=== PATIENT | female | born 1945 | race Caucasian/White ===

== ENCOUNTER 2018-03-21 17:28 | Inpatient (IN) | payer OTHER ==
[~2018-03-21] VITALS: Ht 157.5 cm; Wt 63.5 kg
[2018-03-21 17:30] VITALS: BP_SYST 176
[2018-03-21] MEDS ORDERED: NACL 0.9% 1,000 ML IV ONE (17:33)
[2018-03-21] MEDS ORDERED: ONDANSETRON HCL 4 MG/2 ML VIAL IVP ONE (17:45)
[2018-03-21] MEDS ORDERED: MORPHINE 4 MG/ML INJ. SYRINGE IVP ONE (17:45)
[2018-03-21 17:52] LABS: BILIRUBIN,URINE 1+ (NEGATIVE); BLOOD, URINE 2+ (NEGATIVE); CLARITY/URINE CLEAR (CLEAR); COLOR,URINE YELLOW (YELLOW); GLUCOSE,URINE NEGATIVE (NEGATIVE); KETONES,URINE NEGATIVE (NEGATIVE); LEUKOCYTE ESTERASE ,URINE 1+ (NEGATIVE); NITRITE, URINE NEGATIVE (NEGATIVE); PROTEIN URINE 1+ (NEGATIVE)
[2018-03-21 18:00] LABS: BACTERIA,URINE MODERATE /HPF (None Seen)
[2018-03-21 18:34] LABS: BASOPHILS # (AUTO) 0.4 K/uL (0.0-0.2); BASOPHILS % (AUTO) 3.2 % (0.0-2.0); EOSINOPHILS # (AUTO) 0.1 K/uL (0.0-0.4); EOSINOPHILS % (AUTO) 0.5 % (0.0-4.0); HEMATOCRIT 41.5 % (36-48); HEMOGLOBIN 13.9 g/dL (12.0-16.0); LYMPHOCYTES # (AUTO) 1.2 K/uL (1.0-5.5); LYMPHOCYTES % (AUTO) 8.6 % (20.5-51.5); MEAN CORPUSCULAR HEMOGLOBIN 31 pg (27-31); MEAN CORPUSCULAR HGB CONC 33 % (32-36); MEAN CORPUSCULAR VOLUME 94 fL (79.0-98.0); MONOCYTES # (AUTO) 0.8 K/uL (0.0-1.0); NEUTROPHILS # (AUTO) 11.2 K/uL (1.8-7.7); NEUTROPHILS % (AUTO) 81.7 % (40.0-70.0); PLATELET COUNT (AUTO) 276 K/uL (130-430); RED BLOOD CELL COUNT(AUTO) 4.42 MIL/uL (4.2-6.2); RED CELL DISTRIBUTION WIDTH 12.9 % (9.0-15.0); WHITE BLOOD COUNT (AUTO) 13.7 K/uL (4.8-10.8)
[2018-03-21 18:44] LABS: ANION GAP 9 (5-15); CALCIUM 8.8 mg/dL (8.4-11.0); CHLORIDE 102 mmol/L (98-107); CREATININE 0.71 mg/dL (0.55-1.30); GLUCOSE 137 mg/dL (70-99); POTASSIUM 4.7 mmol/L (3.5-5.1); SODIUM SERUM 136 mmol/L (136-145); UREA NITROGEN, BLOOD 12 mg/dL (8-21)
[2018-03-21 18:48] LABS: ALANINE AMINOTRANSFERASE 903 U/L (12-78); AMYLASE 55 U/L (0-100); LIPASE 201 U/L (73-393); TOTAL BILIRUBIN 2.5 mg/dL (0.0-1.0)
[2018-03-21] MEDS ORDERED: MELO15TA13 PO (19:00)
[2018-03-21] MEDS ORDERED: MIRA25TA PO (19:00)
[2018-03-21] MEDS ORDERED: CHOL100035 PO (19:00)
[2018-03-21] MEDS ORDERED: ASA81 PO (19:00)
[2018-03-21] MEDS ORDERED: PRO40 PO (19:00)
[2018-03-21] MEDS ORDERED: METO25TA3 PO (19:00)
[2018-03-21] MEDS ORDERED: LEVO25TA7 PO (19:00)
[2018-03-21] MEDS ORDERED: ACT35 PO (19:00)
[2018-03-21] MEDS ORDERED: LIP10 PO (19:00)
[2018-03-21] MEDS ORDERED: TYC3 PO (19:00)
[2018-03-21] MEDS ORDERED: DULO60CA41 PO (19:00)
[2018-03-21] MEDS ORDERED: TRAM1TAB33 PO (19:00)
[2018-03-21] MEDS ORDERED: DICL50TA9 PO (19:00)
[2018-03-21 19:02] LABS: ASPARTATE AMINOTRANSFERASE 1225 U/L (10-37)
[2018-03-21] MEDS ORDERED: cefTRIAXone 1 GM IVPB PREMIX 50 ML IV ONE (19:30)
[2018-03-21 21:23] VITALS: BP_SYST 146
[2018-03-21] MEDS ORDERED: hydrALAZINE HCL 25 MG TABLET PO PRN (22:45)
[2018-03-21] MEDS ORDERED: LEVOFLOXACIN 500 MG/D5W 100 ML IV ONE (23:29)
[2018-03-21] MEDS: LEVOFLOXACIN 500 MG/D5W 100 ML IV SCH (23:40)
[2018-03-22 00:34] VITALS: BP_SYST 142
[2018-03-22] MEDS: LEVOTHYROXINE SODIUM 0.025 MG TABLET PO SCH (06:21)
[2018-03-22 08:00] VITALS: BP_SYST 138
[2018-03-22] MEDS: DULoxetine HCL 30 MG CAPSULE.DR (CYMBALTA) PO SCH (08:44)
[2018-03-22] MEDS: ASPIRIN 81 MG TAB.CHEW PO SCH (08:44)
[2018-03-22] MEDS: PANTOPRAZOLE SODIUM 40 MG TAB PO SCH (08:44)
[2018-03-22] MEDS: METOPROLOL SUCCINATE 25 MG TAB.SR.24H (TOPROL XL) PO SCH (08:44)
[2018-03-22] MEDS: ACETAMINOPHEN/CODEINE 300 MG-30 MG TABLET PO SCH (08:45)
[2018-03-22] MEDS ORDERED: ATORVASTATIN 10 MG TABLET PO SCH (09:00)
[2018-03-22 15:39] VITALS: BP_SYST 124
[2018-03-22] MEDS: NACL 0.9% 1,000 ML IV SCH (15:41)
[2018-03-22] MEDS ORDERED: ACETAMINOPHEN 325 MG TABLET PO ONE (19:00)
[2018-03-22 20:00] VITALS: BP_SYST 143
[2018-03-22] MEDS: LEVOFLOXACIN 500 MG/D5W 100 ML IV SCH (23:08)
[2018-03-23 01:35] VITALS: BP_SYST 122
[2018-03-23] MEDS: NACL 0.9% 1,000 ML IV SCH ×3 (03:50→22:24)
[2018-03-23] MEDS: LEVOTHYROXINE SODIUM 0.025 MG TABLET PO SCH (06:30)
[2018-03-23 07:16] LABS: INR 1.2 (0.8-1.2); PROTHROMBIN TIME 11.7 SECS (9.5-12.5)
[2018-03-23 07:19] LABS: BASOPHILS % (AUTO) 0.3 % (0.0-2.0); EOSINOPHILS # (AUTO) 0.3 K/uL (0.0-0.4); EOSINOPHILS % (AUTO) 3.4 % (0.0-4.0); HEMATOCRIT 33.8 % (36-48); HEMOGLOBIN 11.7 g/dL (12.0-16.0); LYMPHOCYTES # (AUTO) 1.3 K/uL (1.0-5.5); LYMPHOCYTES % (AUTO) 15.8 % (20.5-51.5); MEAN CORPUSCULAR HEMOGLOBIN 33 pg (27-31); MEAN CORPUSCULAR HGB CONC 35 % (32-36); MEAN CORPUSCULAR VOLUME 95 fL (79.0-98.0); MONOCYTES # (AUTO) 0.7 K/uL (0.0-1.0); MONOCYTES % (AUTO) 8.7 % (1.7-9.3); NEUTROPHILS # (AUTO) 6.1 K/uL (1.8-7.7); NEUTROPHILS % (AUTO) 71.8 % (40.0-70.0); PLATELET COUNT (AUTO) 217 K/uL (130-430); RED BLOOD CELL COUNT(AUTO) 3.56 MIL/uL (4.2-6.2); RED CELL DISTRIBUTION WIDTH 13.1 % (9.0-15.0); WHITE BLOOD COUNT (AUTO) 8.4 K/uL (4.8-10.8)
[2018-03-23 07:21] LABS: ANION GAP 5 (5-15); CALCIUM 7.9 mg/dL (8.4-11.0); CHLORIDE 109 mmol/L (98-107); CREATININE 0.56 mg/dL (0.55-1.30); GLUCOSE 110 mg/dL (70-99); POTASSIUM 3.7 mmol/L (3.5-5.1); SODIUM SERUM 139 mmol/L (136-145); UREA NITROGEN, BLOOD 9 mg/dL (8-21)
[2018-03-23 07:33] LABS: ALANINE AMINOTRANSFERASE 379 U/L (12-78); ALBUMIN 2.9 g/dL (3.4-4.8); BILIRUBIN,DIRECT 0.4 mg/dL (0.0-0.3)
[2018-03-23 07:36] LABS: ASPARTATE AMINOTRANSFERASE 111 U/L (10-37)
[2018-03-23 12:07] LABS: HEPATITIS B SURFACE AG Negative (Negative); HEPATITIS C VIRUS AB <0.1 s/co ratio (0.0-0.9)
[2018-03-23 12:13] VITALS: BP_SYST 141
[2018-03-23 16:10] VITALS: BP_SYST 143
[2018-03-23] MEDS: ASPIRIN 81 MG TAB.CHEW PO SCH (18:49)
[2018-03-23] MEDS: DULoxetine HCL 30 MG CAPSULE.DR (CYMBALTA) PO SCH (18:49)
[2018-03-23] MEDS: PANTOPRAZOLE SODIUM 40 MG TAB PO SCH (18:49)
[2018-03-23] MEDS: METOPROLOL SUCCINATE 25 MG TAB.SR.24H (TOPROL XL) PO SCH (18:50)
[2018-03-23] MEDS: ACETAMINOPHEN/CODEINE 300 MG-30 MG TABLET PO SCH (18:51)
[2018-03-23 20:00] VITALS: BP_SYST 144
[2018-03-23] MEDS: LEVOFLOXACIN 500 MG/D5W 100 ML IV SCH (22:24)
[2018-03-23 23:45] VITALS: BP_SYST 141
[2018-03-24] MEDS: LEVOTHYROXINE SODIUM 0.025 MG TABLET PO SCH (06:00)
[2018-03-24 08:00] VITALS: BP_SYST 165
[2018-03-24] MEDS ORDERED: DIATR MEGLU/DIATRIZ SOD 30 ML SOLUTION PO ONE (08:22)
[2018-03-24] MEDS: PANTOPRAZOLE SODIUM 40 MG TAB PO SCH (08:46)
[2018-03-24] MEDS: METOPROLOL SUCCINATE 25 MG TAB.SR.24H (TOPROL XL) PO SCH (08:46)
[2018-03-24] MEDS: ASPIRIN 81 MG TAB.CHEW PO SCH (08:46)
[2018-03-24] MEDS: ACETAMINOPHEN/CODEINE 300 MG-30 MG TABLET PO SCH (08:46)
[2018-03-24] MEDS: DULoxetine HCL 30 MG CAPSULE.DR (CYMBALTA) PO SCH (08:47)
[2018-03-24 12:00] VITALS: BP_SYST 143
[2018-03-24] MEDS: NACL 0.9% 1,000 ML IV SCH (14:27)
[2018-03-24 15:03] VITALS: BP_SYST 139
[2018-03-24 19:38] VITALS: BP_SYST 139
[2018-03-25 11:42] LABS: HEPATITIS A AB, IgM Negative (Negative)
[2018-03-25 11:43] LABS: HEPATITIS A AB, IgM Negative (Negative); HEPATITIS B CORE AB, IgM Negative (Negative); HEPATITIS B SURFACE AG Negative (Negative)
== END 2018-03-24 20:00 | disposition home or self-care (01) | DRG 690 ==
LOC: SED 17:28 → STU 19:43
PROVIDERS: ADMIT Internal Medicine; ATTEND Internal Medicine
DX: N39.0 Urinary tract infection, site not specified (principal); R65.10 Systemic inflammatory response syndrome (SIRS) of non-infectious origin without acute organ dysfunction; I10 Essential (primary) hypertension; E03.9 Hypothyroidism, unspecified; E78.00 Pure hypercholesterolemia, unspecified; R79.89 Other specified abnormal findings of blood chemistry; R74.0 Nonspecific elevation of levels of transaminase and lactic acid dehydrogenase [LDH]; E78.5 Hyperlipidemia, unspecified; K83.8 Other specified diseases of biliary tract; Z79.899 Other long term (current) drug therapy; Z79.82 Long term (current) use of aspirin; Z82.49 Family history of ischemic heart disease and other diseases of the circulatory system; Z90.49 Acquired absence of other specified parts of digestive tract; Z90.710 Acquired absence of both cervix and uterus; K75.9 Inflammatory liver disease, unspecified; Z88.1 Allergy status to other antibiotic agents
CPT/HCPCS: 36415; 71045; 74181; 76700-TC; 78226; 80053; 80074; 81000-TC; 82150-TC; 82248-TC; 82550-TC; 83605; 83690-TC; 84484; 85025; 85610-TC; 85730-TC; 86709; 86803; 87040-TC; 87086; 87340; 93005; 93306; 96361; 96365; 96375; 99285; A9537; J0696; J1956; J2270; J2405; J7030; Q9964

== ENCOUNTER 2018-05-24 10:18 | Inpatient (IN) | payer OTHER ==
[~2018-05-24] VITALS: Ht 157.5 cm; Wt 65.3 kg
[~2018-05-24 10:18] MED LIST: ACT35 PO; ASA81 PO; CHOL100035 PO; DICL50TA9 PO; DULO60CA41 PO; LEVO25TA7 PO; MELO15TA13 PO; METO25TA3 PO; MIRA25TA PO; PRO40 PO; TRAM1TAB33 PO; TYC3 PO
--- NOTE | 2018-05-24 10:20 | NUR ---
Pt wheeled to bed 7
[2018-05-24 10:24] VITALS: BP_SYST 149
--- NOTE | 2018-05-24 10:26 | NUR ---
Patient arrived by POV with daughter to accompany. Patient arrived ambulatory and sat in wheelchair in waiting area. Patient alert and oriented. C/C of abdominal pain x 1 month, was admitted 1 month ago. She has a GI follow up appointment on 06/01/18. Patient denies, nausea and vomiting. Patient states pain is right upper quadrant, epigastric pain. Fall on Friday on stomach. Pain is 6/10. Will continue to follow up and monitor patient for changes in status.
[2018-05-24] MEDS ORDERED: KETOROLAC TROMETHAMINE 30 MG VIAL IVP ONE (10:30)
[2018-05-24] MEDS ORDERED: NACL 0.9% 1,000 ML IV ONE (10:30)
--- NOTE | 2018-05-24 10:35 | NUR ---
ER at bedside examining patient.
--- NOTE | 2018-05-24 11:15 | NUR ---
Medication was given to pt, tolerated well
[2018-05-24 11:21] LABS: BASOPHILS # (AUTO) 0.1 K/uL (0.0-0.2); BASOPHILS % (AUTO) 0.6 % (0.0-2.0); EOSINOPHILS % (AUTO) 0.2 % (0.0-4.0); HEMATOCRIT 46.8 % (36-48); HEMOGLOBIN 15.2 g/dL (12.0-16.0); LYMPHOCYTES # (AUTO) 0.6 K/uL (1.0-5.5); MEAN CORPUSCULAR HEMOGLOBIN 31 pg (27-31); MEAN CORPUSCULAR HGB CONC 33 % (32-36); MEAN CORPUSCULAR VOLUME 95 fL (79.0-98.0); MONOCYTES # (AUTO) 0.4 K/uL (0.0-1.0); MONOCYTES % (AUTO) 3.6 % (1.7-9.3); NEUTROPHILS # (AUTO) 9.5 K/uL (1.8-7.7); NEUTROPHILS % (AUTO) 89.6 % (40.0-70.0); PLATELET COUNT (AUTO) 317 K/uL (130-430); RED BLOOD CELL COUNT(AUTO) 4.91 MIL/uL (4.2-6.2); RED CELL DISTRIBUTION WIDTH 12.9 % (9.0-15.0); WHITE BLOOD COUNT (AUTO) 10.6 K/uL (4.8-10.8)
[2018-05-24 11:32] LABS: ANION GAP 12 (5-15); CALCIUM 8.8 mg/dL (8.4-11.0); CHLORIDE 98 mmol/L (98-107); CREATININE 0.79 mg/dL (0.55-1.30); GLUCOSE 133 mg/dL (70-99); POTASSIUM 4.1 mmol/L (3.5-5.1); SODIUM SERUM 134 mmol/L (136-145); UREA NITROGEN, BLOOD 12 mg/dL (8-21)
[2018-05-24 11:43] LABS: ALANINE AMINOTRANSFERASE 1766 U/L (12-78); ALBUMIN 4.2 g/dL (3.4-4.8); ASPARTATE AMINOTRANSFERASE 1933 U/L (10-37); TOTAL BILIRUBIN 1.8 mg/dL (0.0-1.0)
[2018-05-24 12:39] LABS: LIPASE 13240 U/L (73-393)
[2018-05-24] MEDS ORDERED: LIP10 PO (12:48)
[2018-05-24] MEDS ORDERED: IRBE150T48 PO (12:48)
[2018-05-24] MEDS ORDERED: ONDANSETRON HCL 4 MG/2 ML VIAL IVP PRN (13:00)
--- NOTE | 2018-05-24 14:14 | NUR ---
CONSULTATION PAGED/CALLED Reason for Consultation: [] PANCREATITIS Person Who was Notified: [] GRECIA Consulting Physician: [] DR Stephania JACKSON Toeing Stockings Specialty: [] GI Ordering Physician: [] DR Landon COLIN
--- NOTE | 2018-05-24 14:40 | NUR ---
aPatient will be admitted to care of Dr. Jacobsen. Admitted to Telemetry unit. Will go to room 132C. Belongings list completed. Summary report printed. Report will be given at bedside.
--- NOTE | 2018-05-24 14:41 | NUR ---
ADMISSION NOTE Received patient from ER via [facility], received report from CHEL COFFEY. Patient admitted with diagnosis of PANCREATITIS. Patient oriented to hospital routine, call light, toileting and safety-patient verbalized understanding.
[2018-05-24 14:50] VITALS: BP_SYST 138
[2018-05-24] MEDS ORDERED: PANTOPRAZOLE SODIUM 40 MG/VIAL (PROTONIX) IVP ONE (15:00)
[2018-05-24] MEDS: NACL 0.9% 1,000 ML IV SCH ×2 (15:24→23:00)
[2018-05-24 16:30] VITALS: BP_SYST 148
--- NOTE | 2018-05-24 16:30 | NUR ---
Resting Patient able to sleep after Protonix was given, no sign of acute discomfort, fall/safety precaution initiated.
[2018-05-24 19:00] VITALS: BP_SYST 142
--- NOTE | 2018-05-24 19:15 | NUR ---
change of shift.pt.new admission.pt.presents gi involvement;pain.language barrier extant;pt.primary language colombian;bahraini;fluent slight degree.family present;bahraini fluent.i inquired if the pt.presents pain;pt/stated yes.i inquired if the pt.presents nausea.pt.stated no.general status stable.respiratory status stable@room air. iv fluids infusing.diet status npo;ice chips ordered.call light/telephone w/in the pt's reach.
[2018-05-24] MEDS: MORPHINE 4 MG/ML INJ. SYRINGE IVP PRN (19:38)
--- NOTE | 2018-05-24 19:40 | NUR ---
pt.had states she was presenting pain.i have administered morphine;4mg ivp.to f/u re;pain medication efficacy per pain mgx protocol.i inquired if the pt. requested ice chips.the pt.stated no.
[2018-05-24 20:00] VITALS: BP_SYST 142
--- NOTE | 2018-05-24 20:00 | NUR ---
pt.assessed.v/s assessed:values w/in normal limits.i inquired if the pt.presents decrease in pain intensity level.pt.stated yes.she is feeling much better.i inquired if the pt.presents symptoms;nausea.pt.stated no.general status stable.respiratory status stable.pt.capable to reposition self.call light/telephone w/in the pt's reach.
--- NOTE | 2018-05-24 21:00 | NUR ---
no 2100p medication.pt.assessed.pt.present quiescent affect;calm,somnolent. i assessed the pain medication efficacy;pt.stated she feels better.
--- NOTE | 2018-05-24 21:30 | NUR ---
pt.assessed.pt.presents quiescent affect;calm,somnolent.
--- NOTE | 2018-05-24 22:00 | NUR ---
pt.assessed.pt.presents quiescent affect;i inquired if the pt,presents pain symptoms.pt.stated no she is fine. general status stable.respiratory status stable.pt.capable to reposition self.call light/telephone w/in the pt's reach.
--- NOTE | 2018-05-24 22:30 | NUR ---
pt.assessed.pt.presents quiescent affect;calm,somnolent.
--- NOTE | 2018-05-24 23:00 | NUR ---
pt.assessed.pt.presents quiescent affect;calm,somnolent.
--- NOTE | 2018-05-24 23:30 | NUR ---
pt.assessed.pt.present quiescent affect;calm,somnolent.
--- NOTE | 2018-05-25 | NUR ---
pt.assessed.v/s assessed;values w/in normal limits.pt.states she is comfortable.iv fluids infusing. general status stable/respiratory status stable.pt.capable to reposition self.call light/telephone w/in the pt's reach.
[2018-05-25] MEDS: NACL 0.9% 1,000 ML IV SCH ×2 (00:25→11:22)
[2018-05-25 00:26] VITALS: BP_SYST 138
--- NOTE | 2018-05-25 00:30 | NUR ---
i have changed the iv fluids bag.iv fluids infusing via peripheral line access;location; rt.forearm.iv access;assessed;patent.
--- NOTE | 2018-05-25 02:00 | NUR ---
pt.assessed.pt.presents quiescent affect;calm,somnolent.general status stable.respiratory status stable.pt.capable to reposition self.call light/telephone w/in t pt's reach.
--- NOTE | 2018-05-25 04:00 | NUR ---
pt.assessed.pt.presents quiescent affect;calm,somnolent.general status stable.respiratory status stable. iv fluids infusing.pt.capable to reposition self.susana light/telephone w/in the pt's reach.
[2018-05-25] MEDS: MORPHINE 4 MG/ML INJ. SYRINGE IVP PRN ×2 (06:33→22:19)
--- NOTE | 2018-05-25 06:45 | NUR ---
pt.assessed.pt.assisted to the restroom;per dtr's.assistance.pt.requested medication;pain.i have administered morphine;4mg ivp. no c/o nausea.i have provided the pt.w/toiletries.i have provided hospital socks.i have applied an iv-access extension.general status stable.respiratory status stable.call light/telephone placed w/in the pt's reach.i have provided cup of ice chips.
[2018-05-25 07:08] LABS: BASOPHILS # (AUTO) 0.1 K/uL (0.0-0.2); BASOPHILS % (AUTO) 0.6 % (0.0-2.0); EOSINOPHILS # (AUTO) 0.1 K/uL (0.0-0.4); EOSINOPHILS % (AUTO) 1.1 % (0.0-4.0); HEMATOCRIT 35.4 % (36-48); HEMOGLOBIN 11.8 g/dL (12.0-16.0); LYMPHOCYTES # (AUTO) 1.3 K/uL (1.0-5.5); LYMPHOCYTES % (AUTO) 14.2 % (20.5-51.5); MEAN CORPUSCULAR HEMOGLOBIN 32 pg (27-31); MEAN CORPUSCULAR HGB CONC 33 % (32-36); MEAN CORPUSCULAR VOLUME 95 fL (79.0-98.0); MONOCYTES # (AUTO) 0.5 K/uL (0.0-1.0); MONOCYTES % (AUTO) 5.9 % (1.7-9.3); NEUTROPHILS # (AUTO) 6.9 K/uL (1.8-7.7); NEUTROPHILS % (AUTO) 78.2 % (40.0-70.0); PLATELET COUNT (AUTO) 254 K/uL (130-430); RED BLOOD CELL COUNT(AUTO) 3.74 MIL/uL (4.2-6.2); RED CELL DISTRIBUTION WIDTH 12.9 % (9.0-15.0); WHITE BLOOD COUNT (AUTO) 8.9 K/uL (4.8-10.8)
--- NOTE | 2018-05-25 07:20 | NUR ---
Opening Note patient resting in bed, awake and alert, family at bedside, patient denies pain at this time, breathing unlabored on room air, educated patient and family on use of call light for assistance, verbalized understanding, call light and bedside table left within reach, will continue to monitor patient
[2018-05-25 07:36] LABS: ANION GAP 10 (5-15); CHLORIDE 110 mmol/L (98-107); CREATININE 0.53 mg/dL (0.55-1.30); GLUCOSE 77 mg/dL (70-99); POTASSIUM 3.4 mmol/L (3.5-5.1); SODIUM SERUM 140 mmol/L (136-145); UREA NITROGEN, BLOOD 14 mg/dL (8-21)
[2018-05-25 07:41] LABS: ALANINE AMINOTRANSFERASE 795 U/L (12-78); ALBUMIN 2.9 g/dL (3.4-4.8); CHOLESTEROL 147 mg/dL (<200); HDL CHOLESTEROL 59 mg/dL (>55); LDL CHOLESTEROL 78 mg/dL (<100); TOTAL BILIRUBIN 1.6 mg/dL (0.0-1.0); TRIGLYCERIDES 55 mg/dL (30-150)
[2018-05-25 07:44] LABS: ASPARTATE AMINOTRANSFERASE 386 U/L (10-37)
[2018-05-25] MEDS: ENOXAPARIN SODIUM 40 MG/0.4 ML SYRINGE SUBCUT SCH (08:09)
[2018-05-25] MEDS: PANTOPRAZOLE SODIUM 40 MG/VIAL (PROTONIX) IVP SCH (08:09)
[2018-05-25 08:14] LABS: LIPASE 4547 U/L (73-393)
--- NOTE | 2018-05-25 08:20 | NUR ---
Medication Administration educated patient and family regarding meds, verbalized understanding, tolerated well by mouth, no complaints of pain at this time, breathing unlabored on room air, no other needs at this time, safety precautions remain in place, family at bedside, bedside table and call light left within reach, will continue to monitor
[2018-05-25 08:22] VITALS: BP_SYST 142
--- NOTE | 2018-05-25 09:44 | NUR ---
Dr. Cristobal Rounds placed order for abd ultrasound, awaiting GI consult, patient denies pain at this time, family at bedside, will continue to monitor
--- NOTE | 2018-05-25 10:10 | NUR ---
Ultrasound at bedside at this time
[2018-05-25 12:07] VITALS: BP_SYST 130
[2018-05-25] MEDS ORDERED: POTASSIUM CHLORIDE 20 MEQ TAB.PRT.SR PO ONE (12:15)
[2018-05-25] MEDS: D5NS 1,000 ML IV SCH ×2 (12:34→22:23)
--- NOTE | 2018-05-25 12:36 | NUR ---
Potassium administered at this time, educated patient and family regarding med, verbalized understanding, MD okayed to give PO, IV fluids infusing at this time, site remains patent, no other needs, family remains at bedside, educated patient on use of call light for assistance, verbalized understanding, safety precautions remain in place, bedside table and call light left within reach, will continue to monitor
--- NOTE | 2018-05-25 13:45 | NUR ---
Dr. Dueñas Rounds at this time, stated patient to receive MRCP today and will place order, stated may progress patient to clear liquids, will await MD orders
--- NOTE | 2018-05-25 15:01 | NUR ---
Called MRI to ask if patient will be receiving MRI MRCP today, will await call back
--- NOTE | 2018-05-25 15:25 | NUR ---
MRI questionnaire signed at this time, daughter at bedside, informed her that called MRI but no response, procedure may be postponed until tomorrow morning, will keep family updated with plan of care
--- NOTE | 2018-05-25 15:52 | NUR ---
Spoke with Radiology asked about MRI MRCP order for patient, stated MRI will be scheduled for tomorrow morning, will inform patient and family
--- NOTE | 2018-05-25 16:10 | NUR ---
Paged Dr. Dueñas to inform him that MRI MRCP will be done tomorrow, awaiting MD call back
[2018-05-25 16:48] VITALS: BP_SYST 128
[2018-05-25] MEDS: ACETAMINOPHEN 325 MG TABLET PO PRN (17:53)
--- NOTE | 2018-05-25 18:59 | NUR ---
Closing Note patient resting in bed, awake and alert, family at bedside, states pain is better at this time, tolerating clear liquids well, denies abdominal pain at this time, safety precautions remain in place, bedside table and call light left within reach, will endorse to material handler 1st shift nurse
[2018-05-25 20:30] VITALS: BP_SYST 147
--- NOTE | 2018-05-25 20:30 | NUR ---
Opening notes Pt AAOx3. VSS, afebrile. Pt states pain is ok at this time 10/21. IV fluids infusing R. forearm, no s/s infiltration noted. Call light within reach. Family at the bedside. Pt NPO after midnight for MRCP in AM. Safety measures in place. Will continue to monitor.
--- NOTE | 2018-05-25 21:30 | NUR ---
Rounds Pt asleep. No s/s distress noted. IV fluids infusing as ordered, no s/s infiltration noted. Family at bedside. Call light within reach. Will continue to monitor.
--- NOTE | 2018-05-25 22:19 | NUR ---
Pain mgmt Pt ambulated to the bathroom with a cane and voided stand by assist. Pt c/o abd pain 01/20, medicated with Morphine 4mg IVP as needed. Educated pt/pt family regarding possible side effect, verbalized understanding. Call light within reach. To monitor.
[2018-05-25 22:54] VITALS: BP_SYST 151
--- NOTE | 2018-05-26 00:03 | NUR ---
Rounds Pt asleep, no s/s distress noted. Call light within reach. Family at bedside. Will continue to monitor.
[2018-05-26 01:11] VITALS: BP_SYST 138
--- NOTE | 2018-05-26 02:38 | NUR ---
Rounds/Bathroom Pt alert, awake. Ambulated to the bathroom with a cane and voided. No c/o pain at this time. Family at bedside. Call light within reach. To monitor.
--- NOTE | 2018-05-26 05:50 | NUR ---
Closing notes Pt awake, pt walked to the bathroom with cane steady gait. No c/o pain at this time. Pt voided. IV fluids infusing as ordered R. forearm 22G no s/s infiltration. Call light within reach. Family at bedside. Safety measures in place. To endorse to am nurse.
--- NOTE | 2018-05-26 07:55 | NUR ---
INITIAL NOTE RECEIVED PT IN BED, NO S/S OF DISTRESS OR SOB NOTED, PT HAS NO C/O PAIN AT THIS TIME, PT IN STABLE CONDITION, PT AAOX4, VERBAL, MALDIVIAN SPEAKING, IV CATHETER PATENT, NO SIGNS OF INFECTION OR INFILTRATION NOTED, RUNNING IV FLUIDS ORDERED. BED AT LOWEST POSITION, CALL LIGHT WITHIN REACH, WILL CONTINUE TO MONITOR PT FOR ANY CHANGES, FALL AND SAFETY PRECAUTIONS IN PLACE. PT NPO FOR PROCEDURE THIS AM.
[2018-05-26 08:30] VITALS: BP_SYST 132
[2018-05-26] MEDS: PANTOPRAZOLE SODIUM 40 MG/VIAL (PROTONIX) IVP SCH (08:49)
[2018-05-26] MEDS: ENOXAPARIN SODIUM 40 MG/0.4 ML SYRINGE SUBCUT SCH (08:49)
[2018-05-26] MEDS: D5NS 1,000 ML IV SCH ×3 (08:50→23:08)
--- NOTE | 2018-05-26 10:12 | NUR ---
ROUNDS PT IN BED, NO S/S OF DISTRESS OR SOB NOTED, PT HAS NO C/O PAIN AT THIS TIME, PT IN STABLE CONDITION, PT RESTING COMFORTABLY, DAUGHTER AT BEDSIDE, WILL CONTINUE TO MONITOR PT FOR ANY CHANGES.
--- NOTE | 2018-05-26 10:47 | NUR ---
Nutrition Update Galindo Scale 16 noted. Pt admitted for pancreatitis. Diet: NPO and clear liquid (2 active, diet orders) BMI: 26.3 kg/m2 RD to follow per nutrition care standards.
[2018-05-26 11:21] LABS: BASOPHILS % (AUTO) 0.4 % (0.0-2.0); EOSINOPHILS # (AUTO) 0.3 K/uL (0.0-0.4); EOSINOPHILS % (AUTO) 5.7 % (0.0-4.0); HEMATOCRIT 37.8 % (36-48); HEMOGLOBIN 12.1 g/dL (12.0-16.0); LYMPHOCYTES # (AUTO) 1.3 K/uL (1.0-5.5); LYMPHOCYTES % (AUTO) 27.2 % (20.5-51.5); MEAN CORPUSCULAR HEMOGLOBIN 30 pg (27-31); MEAN CORPUSCULAR HGB CONC 32 % (32-36); MEAN CORPUSCULAR VOLUME 95 fL (79.0-98.0); MONOCYTES # (AUTO) 0.5 K/uL (0.0-1.0); MONOCYTES % (AUTO) 10.3 % (1.7-9.3); NEUTROPHILS # (AUTO) 2.8 K/uL (1.8-7.7); NEUTROPHILS % (AUTO) 56.4 % (40.0-70.0); PLATELET COUNT (AUTO) 267 K/uL (130-430); RED BLOOD CELL COUNT(AUTO) 3.99 MIL/uL (4.2-6.2); RED CELL DISTRIBUTION WIDTH 13.1 % (9.0-15.0); WHITE BLOOD COUNT (AUTO) 4.9 K/uL (4.8-10.8)
[2018-05-26 11:22] LABS: ANION GAP 8 (5-15); CALCIUM 8.1 mg/dL (8.4-11.0); CHLORIDE 108 mmol/L (98-107); CREATININE 0.53 mg/dL (0.55-1.30); GLUCOSE 159 mg/dL (70-99); POTASSIUM 3.4 mmol/L (3.5-5.1); SODIUM SERUM 140 mmol/L (136-145); UREA NITROGEN, BLOOD 4 mg/dL (8-21)
[2018-05-26 11:26] LABS: ALANINE AMINOTRANSFERASE 459 U/L (12-78); ALBUMIN 2.9 g/dL (3.4-4.8); AMYLASE 96 U/L (0-100); LIPASE 985 U/L (73-393); TOTAL BILIRUBIN 0.6 mg/dL (0.0-1.0)
[2018-05-26 11:28] LABS: ASPARTATE AMINOTRANSFERASE 96 U/L (10-37)
--- NOTE | 2018-05-26 11:31 | NUR ---
BLOOD PRESSURE PATIENT'S BLOOD PRESSURE IS 154/72, 68. PT HAS NO C/O HEADACHE OR DIZZINESS, PT IN STABLE CONDITION. DR CHRISTOPHER LANDON, AWAITING CALL BACK. Addendum: 05/26/18 at 1157 by Eladia Helm RN DR CHRISTOPHER VILLANUEVA Addendum: 05/26/18 at 1220 by Eladia Helm RN called back and mushtaq orders given and carried out
[2018-05-26] MEDS ORDERED: METOPROLOL SUCCINATE 25 MG TAB.SR.24H (TOPROL XL) PO ONE (12:15)
[2018-05-26 12:30] VITALS: BP_SYST 154
--- NOTE | 2018-05-26 12:44 | NUR ---
For MRCP via wheelchair
--- NOTE | 2018-05-26 13:41 | NUR ---
PT BACK FROM ERCP PT IN STABLE CONDITION, NO S/S OF DISTRESS OR SOB NOTED, PT HAS NO C/O PAIN AT THIS TIME.
--- NOTE | 2018-05-26 13:52 | NUR ---
CALL DR COUCH INVESTIGATOR, AWAITING CALL BACK FOR RESULTS OF MRCP. Addendum: 05/26/18 at 1513 by Eladia Helm RN made rounds and aware of results, new orders given and carried out
[2018-05-26 16:35] VITALS: BP_SYST 135
--- NOTE | 2018-05-26 18:25 | NUR ---
CLOSING NOTE PT IN BED, NO S/S OF DISTRESS OR SOB NOTED, PT HAS NO C/O PAIN AT THIS TIME, PT IN STABLE CONDITION, PT AAOX4, VERBAL, JAPANESE SPEAKING, IV CATHETER PATENT, NO SIGNS OF INFECTION OR INFILTRATION NOTED, RUNNING IV FLUIDS ORDERED. BED AT LOWEST POSITION, CALL LIGHT WITHIN REACH, WILL ENDORSE CARE OF PT TO INCOMING NURSE, FALL AND SAFETY PRECAUTIONS IN PLACE.
[2018-05-26 20:09] VITALS: BP_SYST 154
--- NOTE | 2018-05-26 20:09 | NUR ---
Opening note Pt asleep, easily arousable. VSS. No c/o pain at this time. IVF infusing as ordered R forearm 22G no s/s infiltration noted. Call light within reach. Pt's family stays at the bedside. Will continue to monitor. Addendum: 05/27/18 at 0626 by Meme Montalvo RN Refused bed alarm on.
[2018-05-26] MEDS: ACETAMINOPHEN 325 MG TABLET PO PRN (23:10)
--- NOTE | 2018-05-26 23:10 | NUR ---
Rounds/Headache Pt awake c/o headache 09/20. Medicated with Tylenol 2tabs PO as needed. Call light within reach. Family at bedside. To monitor.
[2018-05-27 00:41] VITALS: BP_SYST 136
--- NOTE | 2018-05-27 01:30 | NUR ---
Rounds Pt asleep. No s/s distress or discomfort noted. Call light within reach. Family at bedside. To monitor.
--- NOTE | 2018-05-27 03:20 | NUR ---
Rounds/SB on the monitor Pt asleep, easily arousable. Sinus Travis on the monitor. No s/s distress noted. Daughter at bedside. To monitor.
--- NOTE | 2018-05-27 06:15 | NUR ---
Closing notes/Refused bed alarm Pt asleep. No s/s distress or discomfort noted. No c/o abd pain during the night. IV fluids infusing as ordered R. FA 22G no infiltration noted. Needs met throughout the shift. Pt's daughter at bedside. Refused bed alarm. Encouraged to call nurse for assistance. Call light within reach. To endorse to AM nurse.
--- NOTE | 2018-05-27 07:54 | NUR ---
Dr Dueñas round assessing patient, will put in new order, will follow up with orders
--- NOTE | 2018-05-27 07:55 | NUR ---
AM rounds patient is resting in bed, family is present at the bedside, A&Ox4, assessment complete, IV line patent and intact, allergy band on, patient denies any pain at this time, educated on use of call light and her diet, bed at the lowest position, bed alarm on, call light within reach, two side rails up, bed close to nurse station, fall and aspiration precautions in place.
[2018-05-27 08:23] VITALS: BP_SYST 137
[2018-05-27] MEDS: PANTOPRAZOLE SODIUM 40 MG/VIAL (PROTONIX) IVP SCH (08:55)
--- NOTE | 2018-05-27 08:55 | NUR ---
Medication patient is resting in bed, family is at the bedside, educated on medication use and side effect, patient verbalized understanding and tolerated well, IV line patent and intact, allergy band on, no other needs at this time, bed at the lowest position, bed alarm on, call light within reach, two side rails up, bed close to nurse station, fall and aspiration precautions in place. Addendum: 05/27/18 at 1115 by Sandra Ferro RN IV [id number] IV primary line and D5/NS bad was changed
[2018-05-27] MEDS: ENOXAPARIN SODIUM 40 MG/0.4 ML SYRINGE SUBCUT SCH (08:57)
[2018-05-27] MEDS: METOPROLOL SUCCINATE 25 MG TAB.SR.24H (TOPROL XL) PO SCH (08:58)
[2018-05-27] MEDS: D5NS 1,000 ML IV SCH (08:59)
--- NOTE | 2018-05-27 10:44 | NUR ---
RN rounds patient resting in bed, eyes closed, breathing is even and unlabored, no signs of distress, family is at bedside, continuing to monitor the patient, bed in lowest position, two side rails up, call light within reach, bed close to nursing station, fall and aspiration precautions in place. Addendum: 05/27/18 at 1112 by Sandra Ferro RN MEDICATION [id number]
--- NOTE | 2018-05-27 13:00 | NUR ---
Rounds patient is resting in bed with family at the bedside, took patient off case monitor, IV line patent and intact, patient stated she tolerated diet changed, no other needs at this time, bed at the lowest position, two side rails up, bed alarm on, call light within reach, bed close to nurse station fall and aspiration precautions in place.
[2018-05-27 13:03] VITALS: BP_SYST 163
[2018-05-27 13:14] LABS: HEPATITIS A AB, IgM Negative (Negative); HEPATITIS B CORE AB, IgM Negative (Negative); HEPATITIS B SURFACE AG Negative (Negative)
--- NOTE | 2018-05-27 13:29 | NUR ---
Paged Dr Cristobal regarding high blood pressure
[2018-05-27] MEDS ORDERED: cloNIDine HCL 0.1 MG TABLET PO PRN (14:30)
--- NOTE | 2018-05-27 15:16 | NUR ---
Clonidine PRN patient is resting in bed, educated patient on use and side effect, patient verbalized understanding and tolerated well, no other needs at this time, IV line clean and intact, bed at the lowest position, bed alarm on, call light within reach, two side rails up, bed close to nurse station, fall and aspiration precautions in place.
[2018-05-27 16:44] VITALS: BP_SYST 149
--- NOTE | 2018-05-27 17:30 | NUR ---
Rounds patient is resting in bed, patient stated that she is started to feel dizzy from the clonidine, educated on the importance of call light system and moving positions slowly, IV line clean and intact, bed at the lowest position, bed alarm on, call light within reach, two side rails up, bed close to nurse station, fall and aspiration precautions in place.
--- NOTE | 2018-05-27 19:00 | NUR ---
closing note patient is resting in bed with family at the bedside, all needs met for the shift, patient in stable condition, denies any pain, will endorse report to noc shift nurse, IV line clean and intact, bed at the lowest position, bed alarm on, call light within reach, two side rails up, bed close to nurse station, fall and aspiration precautions in place.
--- NOTE | 2018-05-27 19:10 | NUR ---
OPENING NOTE RECEIVED ENDORSEMENT REPORT FROM DAY SHIFT NURSE AT BEDSIDE. PT IS AOX4, WALLISIAN SPEAKING. DTR'S AT BEDSIDE. PT RESTING COMFORTABLY IN BED WITH EYES OPEN. CHEST RISE EVEN AND UNLABORED. NO SOB NOTED, NO DISTRESS NOTED. PT DENIED PAIN AT THIS TIME. PT'S IV ON R FA 22. PT'S IV CLEAN DRY AND INTACT. IVF INFUSING WELL. PT'S SKIN DRY, INTACT AND CLEAN. PT INSTRUCTED HOW TO USE CALL LIGHT AND ROOM PHONE, PT VERBALIZED UNDERSTANDING. PT ORIENTED TO HOSPITAL ROOM AND EDUCATED ON SAFETY, PT INSTRUCTED TO USE CALL LIGHT TO CALL FOR ASSISTANCE, PT VERBALIZED UNDERSTANDING. SAFETY MEASURES IN PLACE CALL LIGHT/ROOM PHONE WITHIN REACH, BEDSIDE TABLE WITHIN REACH, BED WHEELS LOCKED, BED IN LOWEST POSITION, BED RAILS UP X3 AND BED ALARM ON. WILL CONTINUE TO MONITOR PT AND CONTINUE POC.
[2018-05-27 20:36] VITALS: BP_SYST 140
--- NOTE | 2018-05-27 20:37 | NUR ---
RN ROUNDS PT RESTING COMFORTABLY IN BED WITH EYES OPEN. PT'S FAMILY AT BEDSIDE. CHEST RISE EVEN AND UNLABORED. NO SOB NOTED, NO DISTRESS NOTED. PT DENIED PAIN AT THIS TIME. PT'S IV CLEAN DRY AND INTACT. IVF INFUSING WELL. PT'S SKIN DRY AND CLEAN. VITAL SIGNS WNL. IVF INFUSING WELL. NO OTHER NEEDS AT THIS TIME. SAFETY MEASURES IN PLACE CALL LIGHT/ROOM PHONE WITHIN REACH, BEDSIDE TABLE WITHIN REACH, BED WHEELS LOCKED, BED IN LOWEST POSITION, BED RAILS UP X3 AND BED ALARM ON. WILL CONTINUE TO MONITOR PT AND CONTINUE POC.
--- NOTE | 2018-05-27 22:40 | NUR ---
RN ROUNDS PT RESTING COMFORTABLY IN BED WITH EYES CLOSED. PT'S DTR AT BEDSIDE. CHEST RISE EVEN AND UNLABORED. NO SOB NOTED, NO DISTRESS NOTED. NO NEEDS AT THIS TIME. SAFETY MEASURES IN PLACE CALL LIGHT/ROOM PHONE WITHIN REACH, BEDSIDE TABLE WITHIN REACH, BED WHEELS LOCKED, BED IN LOWEST POSITION, BED RAILS UP X3 AND BED ALARM ON. WILL CONTINUE TO MONITOR PT AND CONTINUE POC.
[2018-05-28 00:12] VITALS: BP_SYST 137
[2018-05-28] MEDS: D5NS 1,000 ML IV SCH ×2 (00:53→10:15)
--- NOTE | 2018-05-28 00:56 | NUR ---
RN ROUNDS PT RESTING COMFORTABLY IN BED WITH EYES CLOSED. PT'S DTR AT BEDSIDE. CHEST RISE EVEN AND UNLABORED. NO SOB NOTED, NO DISTRESS NOTED. PT EASILY AWAKEN. SCHEDULED FLUIDS INFUSING WELL. NO OTHER NEEDS AT THIS TIME. SAFETY MEASURES IN PLACE CALL LIGHT/ROOM PHONE WITHIN REACH, BEDSIDE TABLE WITHIN REACH, BED WHEELS LOCKED, BED IN LOWEST POSITION, BED RAILS UP X3 AND BED ALARM ON. WILL CONTINUE TO MONITOR PT AND CONTINUE POC.
--- NOTE | 2018-05-28 02:23 | NUR ---
RN ROUNDS PT RESTING COMFORTABLY IN BED WITH EYES CLOSED. CHEST RISE EVEN AND UNLABORED. NO SOB NOTED, NO DISTRESS NOTED. SAFETY MEASURES IN PLACE. WILL CONTINUE TO MONITOR PT AND CONTINUE POC.
--- NOTE | 2018-05-28 04:23 | NUR ---
RN ROUNDS PT RESTING COMFORTABLY IN BED WITH EYES CLOSED. DTR AT BEDSIDE. CHEST RISE EVEN AND UNLABORED. NO SOB NOTED, NO DISTRESS NOTED. SAFETY MEASURES IN PLACE CALL LIGHT/ROOM PHONE WITHIN REACH, BEDSIDE TABLE WITHIN REACH, BED WHEELS LOCKED, BED IN LOWEST POSITION, BED RAILS UP X3 AND BED ALARM ON. WILL CONTINUE TO MONITOR PT AND CONTINUE POC.
--- NOTE | 2018-05-28 06:50 | NUR ---
CLOSING NOTE WILL ENDORSE PT REPORT TO DAY SHIFT NURSE AT BEDSIDE. PT CURRENTLY RESTING COMFORTABLY IN BED WITH EYES CLOSED. CHEST RISE EVEN AND UNLABORED. NO SOB NOTED, NO DISTRESS NOTED. DTR AT BEDSIDE. IVF INFUSING WELL. ALL SCHEDULED MEDICATIONS ADMINISTERED ORDERED, PT TOLERATED WELL. ALL NEEDS MET THROUGHOUT SHIFT. NO NEEDS AT THIS TIME. SAFETY MEASURES IN PLACE CALL LIGHT/ROOM PHONE WITHIN REACH, BEDSIDE TABLE WITHIN REACH, BED WHEELS LOCKED, BED IN LOWEST POSITION, BED RAILS UP X3 AND BED ALARM ON. WILL CONTINUE TO MONITOR PT AND CONTINUE POC UNTIL CHANGE OF SHIFT.
--- NOTE | 2018-05-28 07:26 | NUR ---
endorsed pt care
[2018-05-28 08:00] VITALS: BP_SYST 152
--- NOTE | 2018-05-28 08:00 | NUR ---
Note Pt resting in bed with her daughter at bedside. No SOB/resp distress or abdominal pain/discomfort noted at this time. IV in left forearm intact and patent infusing IVF's. No needs noted at this time. Call light within reach.
[2018-05-28] MEDS: PANTOPRAZOLE SODIUM 40 MG/VIAL (PROTONIX) IVP SCH (09:18)
[2018-05-28] MEDS: METOPROLOL SUCCINATE 25 MG TAB.SR.24H (TOPROL XL) PO SCH (09:19)
[2018-05-28] MEDS: ENOXAPARIN SODIUM 40 MG/0.4 ML SYRINGE SUBCUT SCH (09:22)
--- NOTE | 2018-05-28 10:00 | NUR ---
Note Dr Cristobal did rounds and orders written. Pt's daughter aware that her mother will received soft diet for lunch and if pt tolerated diet then pt may go home today. Pt denies any needs at this time. Call light within reach.
[2018-05-28 12:30] VITALS: BP_SYST 148
--- NOTE | 2018-05-28 12:35 | NUR ---
Note Pt sitting up in bed eating her soft diet for lunch. Denies any abdominal pain at this time, pt's daughter assisting pt with her needs all shift. Call light within reach.
--- NOTE | 2018-05-28 14:34 | NUR ---
Note Pt tolerated soft diet for lunch well. Pt's daughter has been at bedside all shift. Call light within reach.
--- NOTE | 2018-05-28 14:54 | NUR ---
05/28/2018 8:03 AM (PT) Sheila Harley: need endoscopic ultra sound o/p will refer to dr camargo [phone] ff up with pcp in 1 week 05/27/2018 3:34 PM (PT) Sheila Harley: dr chisholm, gi mrcp neg liquid diet lipase trending down 985 plan for eus o/p per gi 05/25/2018 8:15 PM (PT) Sheila Harley: 73 f acute abdominal pain and pancreatitis in the setting of recent cholecystectomy in January 2018 and very elevated LFTs. 1. Acute pancreatitis. 2. Elevated LFTs. 3. Concern for retained common bile duct stone. GI CARMEN LOW
--- NOTE | 2018-05-28 15:30 | NUR ---
Note Pt and daughter were given discharge instructions and notified that pt needs to see her primary MD and Coin Machine Collector in one to two weeks. Pt's daughter stated that pt already has appts for the two MS's for next week. Pt's left IV was dc'd - no swelling/bleeding/drainage or redness at site. Pt denies any abdominal pain/discomfort at this time or after eating her soft diet for lunch. No SOB/resp distress noted at this time. Call light within reach.
--- NOTE | 2018-05-28 15:50 | NUR ---
Note Pt off the floor via wheelchair to private car. Pt has her 2 appts with PCP and GI MD next week. Pt denies any abdominal pain/discomfort or SOB/resp distress at this time. Pt stable. No needs noted at this time. Pt off the floor with all belongings packed by her daughter and . Pt's daughter checked side table and drawers for belongings. Pt dressed in street clothes for discharge home.
--- NOTE | 2018-05-29 16:31 | NUR ---
Discharge Follow Up Phone Call BLEACHER LARD phoned patient, . A family member translated for patient. Patient is no longer having pain but still feels tired. She is aware of and will attend her follow up appointments. Her family is assisting her as needed. Patient has no questions or concerns.
== END 2018-05-28 15:50 | disposition home or self-care (01) | DRG 440 ==
LOC: SED 10:18 → STU 12:49 → SMU 05-27 16:11
PROVIDERS: ADMIT Internal Medicine; ATTEND Internal Medicine
DX: K85.90 Acute pancreatitis without necrosis or infection, unspecified (principal); E78.5 Hyperlipidemia, unspecified; I10 Essential (primary) hypertension; Z90.49 Acquired absence of other specified parts of digestive tract; Z88.1 Allergy status to other antibiotic agents; Z88.8 Allergy status to other drugs, medicaments and biological substances; Z79.899 Other long term (current) drug therapy; Z79.82 Long term (current) use of aspirin
CPT/HCPCS: 36415; 74181; 76700-TC; 80053; 80061; 80074; 82150-TC; 83690-TC; 84478-TC; 84484; 85025; 90656; 93005; 96361; 96374; 99285; C9113; J1650; J1885; J2270; J7030; J7042

== ENCOUNTER 2018-10-04 09:51 | Emergency (ER) | payer OTHER ==
[~2018-10-04] VITALS: Ht 154.9 cm; Wt 63.5 kg
[~2018-10-04 09:51] MED LIST changes: -DICL50TA9 PO; +IRBE150T48 PO; +LIP10 PO; -MELO15TA13 PO; -MIRA25TA PO; -PRO40 PO; -TRAM1TAB33 PO; -TYC3 PO
[2018-10-04 09:58] VITALS: BP_SYST 154
[2018-10-04 11:12] LABS: ANION GAP 7 (5-15); CALCIUM 8.9 mg/dL (8.4-11.0); CHLORIDE 100 mmol/L (98-107); CREATININE 0.57 mg/dL (0.55-1.30); GLUCOSE 114 mg/dL (70-99); POTASSIUM 4.3 mmol/L (3.5-5.1); SODIUM SERUM 134 mmol/L (136-145); UREA NITROGEN, BLOOD 12 mg/dL (8-21)
[2018-10-04 11:17] LABS: ALANINE AMINOTRANSFERASE 17 U/L (12-78); ALBUMIN 3.6 g/dL (3.4-4.8); ASPARTATE AMINOTRANSFERASE 13 U/L (10-37); TOTAL BILIRUBIN 0.6 mg/dL (0.0-1.0)
[2018-10-04 11:19] LABS: HEMATOCRIT 39.4 % (36-48); HEMOGLOBIN 13.1 g/dL (12.0-16.0); MEAN CORPUSCULAR HEMOGLOBIN 32 pg (27-31); MEAN CORPUSCULAR HGB CONC 33 % (32-36); MEAN CORPUSCULAR VOLUME 96 fL (79.0-98.0); PLATELET COUNT (AUTO) 295 K/uL (130-430); RED BLOOD CELL COUNT(AUTO) 4.12 MIL/uL (4.2-6.2); RED CELL DISTRIBUTION WIDTH 13.4 % (9.0-15.0); WHITE BLOOD COUNT (AUTO) 11.4 K/uL (4.8-10.8)
[2018-10-04 11:20] LABS: BASOPHILS # (AUTO) 0.1 K/uL (0.0-0.2); BASOPHILS % (AUTO) 0.5 % (0.0-2.0); EOSINOPHILS # (AUTO) 0.3 K/uL (0.0-0.4); EOSINOPHILS % (AUTO) 2.9 % (0.0-4.0); LYMPHOCYTES # (AUTO) 1.6 K/uL (1.0-5.5); LYMPHOCYTES % (AUTO) 13.6 % (20.5-51.5); MONOCYTES # (AUTO) 0.8 K/uL (0.0-1.0); MONOCYTES % (AUTO) 7.2 % (1.7-9.3); NEUTROPHILS # (AUTO) 8.7 K/uL (1.8-7.7); NEUTROPHILS % (AUTO) 75.8 % (40.0-70.0)
[2018-10-04 11:41] VITALS: BP_SYST 150
== END 2018-10-04 11:41 | disposition home or self-care (01) ==
LOC: SED 09:51
DX: J44.1 Chronic obstructive pulmonary disease with (acute) exacerbation (principal); J20.9 Acute bronchitis, unspecified; I10 Essential (primary) hypertension; Z90.49 Acquired absence of other specified parts of digestive tract; Z90.710 Acquired absence of both cervix and uterus; Z88.1 Allergy status to other antibiotic agents; Z79.899 Other long term (current) drug therapy; Z79.82 Long term (current) use of aspirin
CPT/HCPCS: 36415; 71046-TC; 80053; 85025; 99284